=== PATIENT | male | born 1970 | race Caucasian/White ===

== ENCOUNTER → 2020-06-25 11:12 | Outpatient (CLI) | payer BC, SELFPAY ==
[2020-06-25 23:53] LABS: SARS-CoV-2 RNA PCR Negative
== END ==
PROVIDERS: PCP Family Medicine; Visit Provider Physician Assistant
DX: Z20.822 Contact with and (suspected) exposure to COVID-19 (principal); J02.9 Acute pharyngitis, unspecified; R05 Cough
CPT/HCPCS: C9803; U0003; U0005

== ENCOUNTER 2022-04-04 11:11 | Outpatient (CLI) | payer BC, SELFPAY ==
[2022-04-04 12:29] LABS: Influenza A QL RT-PCR Negative (Negative); Influenza B QL RT-PCR Negative (Negative); SARS-CoV-2 RNA PCR Positive
== END 2022-04-04 11:12 | disposition home or self-care (01) ==
LOC: ANHLAB 11:14
PROVIDERS: PCP Family Medicine; Visit Provider Physician Assistant
DX: U07.1 COVID-19 (principal); R50.9 Fever, unspecified; R05.9 Cough, unspecified
CPT/HCPCS: 87636

== ENCOUNTER 2022-06-02 13:01 | Emergency (ER) | payer BC, SELFPAY ==
--- NOTE | ~2022-06-02 | XR_ITS ---
Portable chest x-ray Comparison: None Clinical History: Syncope Findings: Lungs are clear, without focal consolidation or pleural effusion. Cardiomediastinal silho uette is unremarkable. Bones and soft tissues are unremarkable. Impression: Normal chest. Reviewed, dictated and finalized at location . [facility] Impression: Normal chest.
[2022-06-02 13:06] VITALS: BP 123/88; PULSE 74; RESP 16; TEMP 36.2; O2SAT 98
--- NOTE | 2022-06-02 13:12 | ECG_ITS ---
Measurements Intervals [place] Rate: 78 P: 35 WA: 183 QRS: 31 QRSD: 94 T: 25 QT: 363 QTc: 413 Interpretive Statements SINUS RHYTHM INCOMPLETE RIGHT BUNDLE BRANCH BLOCK BASELINE ARTIFACT- I, II, III, AVR, AVL BORDERLINE ECG NO PREVIOUS ECG AVAILABLE FOR COMPARISON Electronically Signed On 06-02-2022 13:38:24 [facility]ORTER by Marcel Burns D.O.
[2022-06-02 13:20] VITALS: PULSE 81
--- NOTE | 2022-06-02 13:32 | ED.SYNCOPE ---
HPI - Syncope General Chief Complaint: Syncope Stated Complaint: need medically cleared for work Time Seen by Provider: 06/02/22 13:17 History of Present Illness HPI narrative: Patient is a 52-year-old male presenting with syncope. Patient states that he has had severe lower back pain intermittently for at least the last decade. States that he has had 2 episodes in the past that were characterized by severe tailbone pain followed by syncope. States that today while he was driving he developed the same severe tailbone pain and then started to feel extremely nauseated and diaphoretic. States that he knew that he was about to pass out so he was able to pull into a parking lot and his coworker stopped the vehicle. States that he then came to and was covered in sweat. States that he came to the ER to be cleared for work. He denies any chest pain, palpitations, shortness of breath, leg swelling. Denies any headaches, vision changes, numbness or weakness, abdominal pain, vomiting, diarrhea. Related Data Home Medications Medication Instructions Recorded Confirmed No Home Medications 10/07/20 11/04/20 Allergies Allergy/AdvReac Type Severity Reaction Status Date / Time VARENICLINE TARTRATE Allergy Unknown Unknown Uncoded 06/02/22 13:21 Review of Systems Review of Systems: All systems reviewed & are unremarkable except as noted in HPI and below PMFSH Family History Family History Father Malignant neoplasm of prostate Family history of malignant neoplasm of thyroid Family history of alcoholism Mother Patient's mother is in good health, Onset Age: 59 Sibling Family history of alcoholism Social History Social History Smoking packs per day: 1 Smoking cigarettes per day: 20.0 Years smoked: 30 Smoking pack-years: 30.00 Smoking status: Current every day smoker Tobacco type: cigarettes Second hand tobacco smoke exposure: No Alcohol intake: current Substance use: current Substance use type: marijuana Living arrangements: with family Occupation/Education: occupation Gender identity (if verbalized by the patient): Male Sexual Orientation (if Verbalized by the Patient): Straight or Heterosexual Exam Narrative: GENERAL: Well-appearing, well-nourished, and in no acute distress. HEAD: Normocephalic, atraumatic. EYES: PERRLA and EOMI. ENT: Nares clear, no rhinorrhea or epistaxis. Mucous membranes moist. NECK: Supple. CHEST: Clear to auscultation. No respiratory distress. HEART: Regular rate and rhythm. No murmur heard. Normal peripheral pulses. ABDOMEN: Soft, nontender, nondistended, normal active bowel sounds. EXTREMITIES: Normal range of motion. No edema. SKIN: Warm, dry, no rash. NEURO: No focal deficits. Alert and oriented x3. PSYCH: Normal mood and affect. Course Vital Signs Vital signs: Vital Signs Temperature 97.2 F L 06/02/22 13:06 Pulse Rate 74 06/02/22 13:06 Respiratory Rate 16 06/02/22 13:06 Blood Pressure 123/88 06/02/22 13:06 Pulse Oximetry 98 06/02/22 13:06 Oxygen Delivery Room Air 06/02/22 13:06 Temperature 97.2 F L 06/02/22 13:06 Pulse Rate 77 06/02/22 15:16 Respiratory Rate 25 H 06/02/22 15:16 Blood Pressure 129/84 06/02/22 15:16 Pulse Oximetry 99 06/02/22 15:16 Oxygen Delivery Room Air 06/02/22 13:06 MDM - Syncope MDM Narrative Medical decision making narrative: Patient is a 52-year-old male presenting after a syncopal episode. Vitals within normal limits. Patient is well-appearing and in no acute distress. Exam unremarkable. EKG per my interpretation shows normal sinus rhythm, normal axis and intervals, no ST elevations or depressions. Blood work is unremarkable. Troponin is undetectable. Patient continues to feel well. He is asking to go which I think is reasonable. We will provide the number for neur
[2022-06-02 13:38] LABS: Alanine Aminotransferase 36 U/L (6-50); Albumin Level 4.3 g/dL (3.5-5.1); Alkaline Phosphatase 94 U/L (38-126); Anion Gap 4 mmol/L (8-16); Aspartate Amino Transferase 31 U/L (17-59); Basophils Absolute Auto 0.1 K/mm3 (0.0-0.1); Basophils Percent Auto 0.5 % (0.2-1.2); Bilirubin,Total 0.7 mg/dL (0.2-1.3); Blood Urea Nitrogen 10 mg/dL (9-20); Carbon Dioxide 28 mmol/L (22-30); Chloride 103 mmol/L (98-107); Eosinophils Absolute Auto 0.1 K/mm3 (0-0.3); Eosinophils Percent Auto 0.9 % (0-4.4); Estimated CRCL calculation 137 ml/min; Estimated Glomerular Filt Rate > 60; Glucose 86 mg/dL (65-110); Hematocrit 48.8 % (42.0-52.0); Hemoglobin 16.5 g/dL (14.0-18.0); Immature Granulocyte Absolute 0.07 K/mm3 (0.00-0.031); Immature Granulocyte Percent A 0.5 % (0-0.5); Lymphocytes Percent Auto 14.7 % (18.3-44.2); Mean Corpuscular HGB Conc 33.8 g/dl (32-36); Mean Corpuscular Hemoglobin 31.3 pg (26-34); Mean Corpuscular Volume 92.4 fl (80-100); Mean Platelet Volume 9.4 fl (7.4-10.4); Monocytes Absolute Auto 0.7 K/mm3 (0.1-0.6); Monocytes Percent Auto 5.3 % (2.6-8.5); Neutrophils Absolute Auto 10.1 K/mm3 (1.3-6.7); Neutrophils Percent Auto 78.1 % (45.5-73.1); Platelet Count Result 275 k/mm3 (150-375); Potassium 4.4 mmol/L (3.4-5.0); Red Blood Count 5.28 M/mm3 (4.6-6.20); Red Cell Distribution Width 13.2 % (11.5-14.5); Sodium 135 mmol/L (137-145); White Blood Count 12.9 K/mm3 (4.5-10.0)
[2022-06-02] MEDS: SODIUM CHLORIDE 0.9% IV 1,000 ML 999 ML IV CONT (13:57)
[2022-06-02 15:16] VITALS: BP 129/84; PULSE 77; RESP 25; O2SAT 99
[2022-06-02 15:25] LABS: Troponin I < 0.012 ng/mL (0.000-0.034)
== END 2022-06-02 15:51 | disposition home or self-care (01) ==
PROVIDERS: Emergency Medicine; Emergency Provider Emergency Medicine; PCP Family Medicine
DX: R55 Syncope and collapse (principal); F17.210 Nicotine dependence, cigarettes, uncomplicated
CPT/HCPCS: 36415; 71045; 80053; 84484; 85025; 93005; 96360; 99284; J7030

== ENCOUNTER → 2022-07-10 08:43 | Outpatient (CLI) | payer BC, SELFPAY ==
--- NOTE | ~2022-07-10 | XR_ITS ---
Lumbosacral Spine: AP view, and lateral views in neutral, flexion, and extension positioning were per formed. Clinical History: Pain Findings: The normal lordotic curve is maintained. The vertebral bodies and posterior elements are i ntact. The intervertebral disc spaces are preserved. No instability evident. There are mild facet devang int degenerative changes throughout the lumbar spine. The sacroiliac joints are normally outlined. Impression: No fracture, subluxation, or instability. Mild facet joint degenerative changes. Reviewed, dictated and finalized at location M. INUM WELDER Impression: No fracture, subluxation, or instability. Mild facet joint degenerative changes.
--- NOTE | ~2022-07-10 | XR_ITS ---
AP and lateral views of the sacrum/coccyx CLINICAL HISTORY: Back pain FINDINGS: No fracture or dislocation seen. Osseous structures and visualized joint spaces are intact. Soft tissues are unremarkable. IMPRESSION: No significant abnormality seen. Reviewed, dictated and finalized at location M. M[facility] HAND
--- NOTE | ~2022-07-10 | CT_ITS ---
Noncontrast CT scan of the lumbar spine CLINICAL HISTORY: Back pain TECHNIQUE: Axial noncontrast imaging of the lumbar spine was performed. Dose reduction technique was used on this scan by utilizing automated exposure control and iterative reconstruction technique. The dose-length product (DLP) was 1072.18 mGy-cm. FINDINGS: There is no fracture of the lumbar spine. Grade 1 retrolisthesis of L5 over S1 is present. There is minimal degenerative disc narrowing at L5-S1. At L1-L2 and L2-L3, there is no disc bulge or herniation. No spinal canal stenosis or neural foramina l narrowing at these levels. At L3-L4, there is minimal disc bulge. No spinal canal stenosis or neural foraminal narrowing identif ied. At L4-L5, there is minimal disc bulge with facet arthropathy. No [place] spinal canal stenosis. There i s probable moderate bilateral neural foraminal narrowing. At L5-S1, there is disc bulge, especially the left paracentral region. No [place] spinal canal stenosis . There is moderate to severe bilateral neural foraminal narrowing. Paravertebral soft tissues are unremarkable. Bilateral SI joints are unremarkable. No degenerative or erosive/inflammatory change of the SI joints noted. IMPRESSION: Bilateral neural foraminal narrowing at L4-L5 and L5-S1, as detailed above. Grade 1 retrolisthesis of L5 over S1. Unremarkable SI joints. Reviewed, dictated and finalized at [facility]. [employer]
== END ==
PROVIDERS: PCP Family Medicine; Visit Provider Nurse Practitioner Adult Health
DX: M54.9 Dorsalgia, unspecified (principal); M48.07 Spinal stenosis, lumbosacral region
CPT/HCPCS: 72110; 72131; 72220